=== PATIENT | male | born 1965 | race American Indian/Alaskan Native ===

== ENCOUNTER 2019-02-26 07:51 | Emergency (ER) | payer OTHER ==
[2019-02-26] MEDS ORDERED: HYDROcodone/ACETAMINOPHEN 5-325 MG TAB PO ONE (09:14)
[2019-02-26 09:46] LABS: Hematocrit 31.5 % (35.5-45.6); Hemoglobin 10.1 gm/dl (11.8-15.2); Mean Corpuscular HGB Conc 32 % (32-34); Mean Corpuscular Volume 77 fl (84-94); Platelet Count 223 K/mm3 (140-440); Red Cell Distribution Width 14.8 % (13.2-15.2)
[2019-02-26 10:06] LABS: Alanine Aminotransferase 12 units/L (7-56); Albumin 4.8 g/dL (3.9-5); BUN/Creatinine Ratio 9; Blood Urea Nitrogen 8 mg/dL (9-20); Calcium 9.5 mg/dL (8.4-10.2); Hemolysis Index 9
--- NOTE | 2019-02-26 10:18 | Emergency Department Report ---
ED Extremity Problem HPI - General Chief complaint: Extremity Injury, Lower Stated complaint: ANKLE SWOLLEN Time Seen by Provider: 02/26/19 08:56 Source: patient Mode of arrival: Ambulatory Limitations: No Limitations - History of Present Illness Initial comments: Patient is a 53-year-old male who presents emergency room with complaints of left ankle and left heel pain that began 3 days ago. Patient states that he has associated swelling in the left ankle and foot. He states that it has become uncomfortable to bear weight and he feels discomfort when he first steps down. He denies any fall or injury. He denies any numbness, weakness. He states that he is on his feet a lot while at work. He denies any recent travel, recent surgery, recent immobilization. Past medical history of hypertension and GERD. Patient is on amlodipine for his hypertension. Severity scale (0 -10): 10 - Related Data Previous Rx's Medication Instructions Recorded Last Taken Type Ciprofloxacin HCl [Ciprofloxacin 500 mg PO Q12HR #14 tab 02/22/15 Unknown Rx TAB] Albuterol Sulfate [Ventolin HFA] 2 puff IH Q4H PRN #1 hfa.aer.ad 07/24/15 Unknown Rx Azithromycin [Zithromax] 250 mg PO DAILY #01 pkg 07/24/15 Unknown Rx Fluticasone [Flonase] 2 spray NS QDAY #1 bottle 07/24/15 Unknown Rx Losartan [Cozaar] 12.5 mg PO QDAY #60 tablet 07/24/15 Unknown Rx Prednisone [predniSONE 10 mg 10 mg PO .TAPER #1 tab.ds.pk 07/24/15 Unknown Rx (6-Day Pack, 21 Tabs)] Promethazine /Codeine 5 ml PO Q6H PRN #150 ml 07/24/15 Unknown Rx [Phenergan/Codeine 6.25-10 mg/5 ml] Naproxen [Naprosyn TAB] 500 mg PO BID PRN #20 tablet 02/26/19 Unknown Rx Allergies Allergy/AdvReac Type Severity Reaction Status Date / Time No Known Allergies Allergy Verified 07/24/15 05:07 ED Review of Systems ROS: Stated complaint: ANKLE SWOLLEN Other details as noted in HPI Comment: All other systems reviewed and negative ED Past Medical Hx - Past Medical History Previous Medical History?: Yes Hx Hypertension: Yes Additional medical history: anemia - Surgical History Past Surgical History?: Yes Additional Surgical History: "hernia repair" "thumb" - Social History Smoking Status: Current Every Day Smoker Substance Use Type: None - Medications Home Medications: Home Medications Medication Instructions Recorded Confirmed Last Taken Type Ciprofloxacin HCl [Ciprofloxacin 500 mg PO Q12HR #14 tab 02/22/15 Unknown Rx TAB] Albuterol Sulfate [Ventolin HFA] 2 puff IH Q4H PRN #1 hfa.aer.ad 07/24/15 Unknown Rx Azithromycin [Zithromax] 250 mg PO DAILY #01 pkg 07/24/15 Unknown Rx Fluticasone [Flonase] 2 spray NS QDAY #1 bottle 07/24/15 Unknown Rx Losartan [Cozaar] 12.5 mg PO QDAY #60 tablet 07/24/15 Unknown Rx Prednisone [predniSONE 10 mg 10 mg PO .TAPER #1 tab.ds.pk 07/24/15 Unknown Rx (6-Day Pack, 21 Tabs)] Promethazine /Codeine 5 ml PO Q6H PRN #150 ml 07/24/15 Unknown Rx [Phenergan/Codeine 6.25-10 mg/5 ml] Naproxen [Naprosyn TAB] 500 mg PO BID PRN #20 tablet 02/26/19 Unknown Rx ED Physical Exam - General Limitations: No Limitations General appearance: alert, in no apparent distress - Head Head exam: Present: atraumatic, normocephalic - Eye Eye exam: Present: normal appearance - ENT ENT exam: Present: mucous membranes moist - Extremities Exam Extremities exam: Present: other (TTP to the left anterior ankle, left medial ankle, and left heel, edema present to the left ankle and left proximal foot, FROM of the left ankle, left foot and left toes, no erythema, no increased warmth, neurovascularly intact, no deformity, no TTP of the left calf, no edema superior to the left ankle) - Neurological Exam Neurological exam: Present: alert, oriented X3 - Psychiatric Psychiatric exam: Present: normal affect, normal mood - Skin Skin exam: Present: warm, dry, intact ED Course Vital Signs 02/26/19 02/26/19 08:02 12:02 Temperature 98.4 F 98.4 F Pulse Rate 66 68 Respiratory 18 15 Rate Blood Pressure 128/83 Blood Pressure 125/83 [Left] O2 Sat by Pulse 96 97 Oximetry ED Medical Decision Making - Lab Data Result diagrams: 02/26/19 09:28 02/26/19 09:28 Lab Results 02/26/19 02/26/19 Range/Units 09:28 09:28 WBC 3.6 L (4.5-11.0) K/mm3 RBC 4.10 (3.65-5.03) M/mm3 Hgb 10.1 L (11.8-15.2) gm/dl Hct 31.5 L (35.5-45.6) % MCV 77 L (84-94) fl MCH 25 L (28-32) pg MCHC 32 (32-34) % RDW 14.8 (13.2-15.2) % Plt Count 223 (140-440) K/mm3 Lymph % (Auto) Manager Mac Seg Neutrophils % Manager Mac Sodium 140 (137-145) mmol/L Potassium 3.8 (3.6-5.0) mmol/L Chloride 103.9 (98-107) mmol/L Carbon Dioxide 25 (22-30) mmol/L Anion Gap 15 mmol/L BUN 8 L (9-20) mg/dL Creatinine 0.9 (0.8-1.5) mg/dL Estimated GFR > 60 ml/min BUN/Creatinine Ratio 9 % Glucose 97 (75-100) mg/dL Calcium 9.5 (8.4-10.2) mg/dL Total Bilirubin 0.30 (0.1-1.2) mg/dL AST 30 (5-40) units/L ALT 12 (7-56) units/L Alkaline Phosphatase 53 (35-129) units/L Total Protein 7.6 (6.3-8.2) g/dL Albumin 4.8 (3.9-5) g/dL Albumin/Globulin Ratio 1.7 % - Radiology Data Radiology results: report reviewed LEFT FOOT, 3 VIEWS INDICATION: left foot pain. COMPARISON: None. IMPRESSION: No acute osseous or soft tissue abnormality. Mild osteoarthritic joint space narrowing is noted at the first metatarsophalangeal joint. No bone lesion or erosive joint pathology. Signer Name: Olegario Matta Jr, MD Signed: 02/26/2019 10:37 AM Workstation Name: [id number] Transcribed By: TTR Dictated By: OLEGARIO MATTA JR, MD Electronically Authenticated By: OLEGARIO MATTA JR, MD Signed Date/Time: 02/26/19 1037 LEFT ANKLE 3 VIEWS INDICATION: left ankle pain. COMPARISON: None available. 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 There is an old well- corticated avulsion fracture along the lateral process of the talus. Mild di ffuse soft tissue sw elling is present likely secondary to sprain. There is no acute fracture. Signer Name: Rafiq Foote MD Signed: 02/26/2019 10:33 AM Workstation Name: [id number] Transcribed By: TL Dictated By: Rafiq Foote MD Electronically Authenticated By: Rafiq Foote MD Signed Date/Time: 02/26/19 1033 - Medical Decision Making Patient is a 53-year-old male who presents emergency room with complaints of left ankle and left heel pain that began 3 days ago. Patient states that he has associated swelling in the left ankle and foot. He states that it has become uncomfortable to bear weight and he feels discomfort when he first steps down. He denies any fall or injury. He denies any numbness, weakness. He states that he is on his feet a lot while at work. He denies any recent travel, recent surgery, recent immobilization. Past medical history of hypertension and GERD. Patient is on amlodipine for his hypertension. vitals are normal. labs with very mild anemia otherwise normal, normal kidney function, normal liver function. on exam: TTP to the left anterior ankle, left medial ankle, and left heel, edema present to the left ankle and left proximal foot, FROM of the left ankle, left foot and left toes, no erythema, no increased warmth, neurovascularly intact, no deformity, no TTP of the left calf, no edema superior to the left ankle. XR left foot: No acute osseous or soft tissue abnormality. Mild osteoarthritic joint space narrowing is noted at the first metatarsophalangeal joint. No bone lesion or erosive joint pathology. 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 There is an old well- corticated avulsion fracture along the lateral process of the talus. Mild diffuse soft tissue swelling is present likely secondary to sprain. There is no acute fracture. Discussed radiology results with patient. Patient placed in ankle stirrup splint and given crutches. Patient's discomfort treated while in the emergency department and improved. pt did not drive to the emergency department. Patient given prescription for naproxen and discussed RICE therapy with patient. advised pt to please take medication as prescribed as needed. May ice the leg for 15 minutes at a time, rest, elevate the leg. Follow-up with an orthopedic doctor in the next 2-3 days. Follow-up with a primary care doctor in the next 2-3 days. return to the emergency room for any new or worsening symptoms. - Differential Diagnosis strain, sprain, fx, dislocation, arthritis, tendon/ligament injury Critical care attestation.: If time is entered above; I have spent that time in minutes in the direct care of this critically ill patient, excluding procedure time. ED Disposition Clinical Impression: Left foot pain, Arthritis Left ankle pain Qualifiers: Chronicity: acute Qualified Code(s): M25.572 - Pain in left ankle and joints of left foot Anemia Qualifiers: Anemia type: unspecified type Qualified Code(s): D64.9 - Anemia, unspecified Disposition: DC- TO HOME OR SELFCARE Is pt being admited?: No Does the pt Need Aspirin: No Condition: Stable Instructions: Ankle Sprain (ED), Crutch Instructions (ED), Ankle Stirrup Splint (ED), Anemia (ED), RICE Therapy (ED) Additional Instructions: Please take medication as prescribed as needed. May ice the leg for 15 minutes at a time, rest, elevate the leg. Follow-up with an orthopedic doctor in the next 2-3 days. Follow-up with a primary care doctor in the next 2-3 days. return to the emergency room for any new or worsening symptoms. Prescriptions: Naproxen [Naprosyn TAB] 500 mg PO BID PRN #20 tablet PRN Reason: pain Referrals: ELIANA CORDOBA MD [Primary Care Provider] - 2-3 Days MARIO AGUILAR MD [Staff Physician] - 2-3 Days Forms: Work/School Release Form(ED) Time of Disposition: 10:52 Print Language: SWEDISH
--- NOTE | 2019-02-26 10:37 | XRay Report ---
LEFT ANKLE 3 VIEWS INDICATION: left ankle pain. COMPARISON: None available. 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 There is an old well-corticated avulsion fracture along the lateral process of the talus. Mild diffuse soft tissue swelling is presen t likely secondary to sprain. There is no acute fracture. Signer Name: Rafiq Foote MD Signed: 02/26/2019 10:33 AM Workstation Name: [id number]
--- NOTE | 2019-02-26 10:41 | XRay Report ---
LEFT FOOT, 3 VIEWS INDICATION: left foot pain. COMPARISON: None. IMPRESSION: No acute osseous or soft tissue abnormality. Mild osteoarthritic joint space narrowin g is noted at the first metatarsophalangeal joint. No bone lesion or erosive joint pathology. Signer Name: Olegario Matta Jr, MD Signed: 02/26/2019 10:37 AM Workstation Name: [id number]
[2019-02-26 11:13] LABS: Basophils % (Manual) 0 % (0.0-1.8); Total Cells Counted 100
[2019-02-26 11:14] LABS: Anisocytosis 1+; Hypochromasia 1+; Ovalocytes Few; Platelet Estimate Consistent w Auto; Target Cells Few
[2019-02-26 12:05] VITALS: BP 125/83
== END 2019-02-26 12:02 | disposition home or self-care (01) ==
LOC: ED 07:51
DX: M19.072 Primary osteoarthritis, left ankle and foot (principal); D64.9 Anemia, unspecified; I10 Essential (primary) hypertension; F17.200 Nicotine dependence, unspecified, uncomplicated; Z79.899 Other long term (current) drug therapy
CPT/HCPCS: 36415; 80053; 85007; 85025

== ENCOUNTER 2020-08-02 15:15 | Emergency (ER) | payer OTHER ==
[2020-08-02 15:31] VITALS: BP 137/77
--- NOTE | 2020-08-02 15:33 | Emergency Department Report ---
Stated Complaint: FEVER Time Seen by Provider: 08/02/20 15:30 - HPI History of Present Illness: There is a pleasant 54-year-old male who presents the emergency department chief complaint of generalized body aches, malaise, congestion and subjective fever after receiving his [employer] COVID-19 vaccine yesterday. He reports approximately 4 hours after receiving the vaccine he started to have the symptoms. He denies any chest pain, shortness of breath, nausea, vomiting, diarrhea, chills, headache, blurry vision, weakness or any other associated symptoms. - ROS Review of Systems: See HPI - Exam Physical Exam: GENERAL APPEARANCE: Well-developed, well-nourished, no acute distress HEENT: Normocephalic and atraumatic. No scleral icterus. Pupils are equal, round, and reactive to light and accommodation. No conjunctival injection is noted. Oropharynx is clear. Mouth revealed good dentition, no lesions. Tympanic membranes are clear. NECK: Supple. Trachea is midline. No evidence of thyroid enlargement. No lymphadenopathy or tenderness. CHEST: Symmetric. Nontender to palpation. LUNGS: Breath sounds are equal and clear bilaterally. No wheezes, rhonchi, or rales. HEART: Regular rate and rhythm with normal S1 and S2. No murmurs, gallops, or rubs. BREASTS: Symmetrical. No skin or nipple retractions. No nipple discharges or masses. ABDOMEN: Soft, flat, and benign. No mass, tenderness, guarding, or rebound. No organomegaly or hernia. Bowel sounds are present. No CVA tenderness or flank mass. GENITOURINARY: Deferred RECTAL: Deferred EXTREMITIES: No cyanosis, clubbing, or edema. No lower extreme edema, negative Homans sign bilaterally NEUROLOGIC: No focal sensory or motor deficits are noted. Gait is normal. Cranial nerves II through XII are intact. Deep tendon reflexes are intact. PSYCHIATRIC: The patient is awake, alert, and oriented x3. Recent and remote memory is intact. Appropriate mood and affect. SKIN: Warm, dry, and well perfused. Good turgor. No lesions, nodules or rashes are noted. No onychomycosis. LYMPHATICS: No cervical, axillary, or groin adenopathy is noted. MSE screening note: Focused history and physical exam performed. Due to findings the following was ordered: Patient is nontoxic in no acute distress. Vital signs are stable. Is afebrile. Exam was unremarkable. I did offer to do lab work and x-ray however I think the symptoms are likely secondary to the COVID-19 vaccine and the patient politely declined work-up at this time and preferred to follow-up with his primary care doctor and do supportive treatment. I think this is reasonable. Patient understood he could return to the ER immediately if he develops any change or worsening symptoms. All his questions were answered. ED Disposition for MSE Clinical Impression: Adverse reaction to vaccine Qualifiers: Encounter type: initial encounter Qualified Code(s): T50.Z95A - Adverse effect of other vaccines and biological substances, initial encounter Disposition: MED SCREENING EXAM-LEFT Is pt being admited?: No Condition: Stable Referrals: [facility] [Provider Group] - 3-5 Days TJ ABDALLA MD [Staff Physician] - 3-5 Days Forms: Work/School Release Form(ED) Time of Disposition: 15:33
== END 2020-08-02 15:31 | disposition left against medical advice (07) ==
LOC: ED 15:15
DX: R50.9 Fever, unspecified (principal); Z53.21 Procedure and treatment not carried out due to patient leaving prior to being seen by health care provider

== ENCOUNTER 2020-09-14 12:46 | Emergency (ER) | payer OTHER ==
[2020-09-14] MEDS ORDERED: ASPIRIN 325 MG TAB PO ONE (13:00)
--- NOTE | 2020-09-14 13:01 | Event Note ---
ED Screening Note Date of service: 09/14/20 Time: 13:00 ED Screening Note: 55-year-old male presents with mid to left-sided chest pain that began yesterday. Also complaining of a headache. This initial assessment/diagnostic orders/clinical plan/treatment(s) is/are subject to change based on patients health status, clinical progression and re- assessment by fellow clinical providers in the ED. Further treatment and workup at subsequent clinical providers discretion. Patient/guardian urged not to elope from the ED as their condition may be serious if not clinically assessed and managed. Initial orders include: Labs, EKG, chest x-ray, Main side eval
--- NOTE | 2020-09-14 13:32 | Emergency Department Report ---
HPI - General Chief Complaint: Chest Pain Time Seen by Provider: 09/14/20 13:19 - HPI HPI: Room 19 The patient is a 55-year-old male present with chief complaint of "cough. The patient states 2 days ago his symptoms began with mild rhinorrhea. The patient states he then developed a cough productive of yellow sputum. Patient complains of chest soreness from his coughing and states he worsens during his cough. Patient also complains of a headache. Patient denies history of fever. Patient denies history of nausea/vomiting. Patient did receive the [employer]ie Covid vaccination 08/01/2020 ED Past Medical Hx - Past Medical History Hx Hypertension: Yes Additional medical history: anemia - Surgical History Additional Surgical History: "hernia repair" "thumb". tumor and pituitary removed - Family History Family history: no significant - Social History Smoking Status: Never Smoker Substance Use Type: None (Denies illicit drug use) - Medications Home Medications: Home Medications Medication Instructions Recorded Confirmed Last Taken Type Ciprofloxacin HCl [Ciprofloxacin 500 mg PO Q12HR #14 tab 02/22/15 Unknown Rx TAB] Albuterol Sulfate [Ventolin HFA] 2 puff IH Q4H PRN #1 hfa.aer.ad 07/24/15 Unknown Rx Azithromycin [Zithromax] 250 mg PO DAILY #01 pkg 07/24/15 Unknown Rx Fluticasone [Flonase] 2 spray NS QDAY #1 bottle 07/24/15 Unknown Rx Losartan [Cozaar] 12.5 mg PO QDAY #60 tablet 07/24/15 Unknown Rx Prednisone [predniSONE 10 mg 10 mg PO .TAPER #1 tab.ds.pk 07/24/15 Unknown Rx (6-Day Pack, 21 Tabs)] Promethazine /Codeine 5 ml PO Q6H PRN #150 ml 07/24/15 Unknown Rx [Phenergan/Codeine 6.25-10 mg/5 ml] Naproxen [Naprosyn TAB] 500 mg PO BID PRN #20 tablet 02/26/19 Unknown Rx Albuterol Mdi (or & Nicu Only) 2 puff IH QID PRN #8.5 gram 09/14/20 Unknown Rx [ProAir HFA Inhaler] Benzonatate [Tessalon Perles] 100 mg PO Q8HR #30 capsule 09/14/20 Unknown Rx HYDROcodone/APAP 5-325 [[place] 1 - 2 each PO Q6HR PRN #10 tablet 09/14/20 Unknown Rx 5/325] Ibuprofen [Motrin 800 MG tab] 800 mg PO Q8HR PRN #20 tablet 09/14/20 Unknown Rx levoFLOXacin [Levaquin TAB] 500 mg PO QDAY #7 tablet 09/14/20 Unknown Rx ED Review of Systems ROS: Stated complaint: HEAD PAIN Other details as noted in HPI Constitutional: denies: fever Eyes: denies: eye pain ENT: other (Rhinorrhea) Respiratory: cough Cardiovascular: as per HPI Endocrine: no symptoms reported Gastrointestinal: denies: nausea, vomiting Genitourinary: denies: dysuria Musculoskeletal: myalgia Neurological: headache Physical Exam - Physical Exam Vital Signs: Vital Signs 09/14/20 12:55 Temperature 98.9 F Pulse Rate 79 Respiratory 20 Rate Blood Pressure 121/83 O2 Sat by Pulse 98 Oximetry Physical Exam: GENERAL: The patient is well-developed well-nourished male lying on stretcher not appearing to be in acute distress. [] HEENT: Normocephalic. Atraumatic. Extraocular motions are intact. Patient has moist mucous membranes. NECK: Supple. No meningitic signs are noted. Trachea midline CHEST/LUNGS: Clear to auscultation. There is no respiratory distress noted. Occasional cough noted HEART/CARDIOVASCULAR: Regular. There is no tachycardia. There is no gallop rub or murmur. ABDOMEN: Abdomen is soft, nontender. Patient has normal bowel sounds. There is no abdominal distention. SKIN: There is no rash. There is no edema. There is no diaphoresis. NEURO: The patient is awake, alert, and oriented. The patient is cooperative. The patient has no focal neurologic deficits. The patient has normal speech MUSCULOSKELETAL:There is no evidence of acute injury. ED Course Vital Signs 09/14/20 12:55 Temperature 98.9 F Pulse Rate 79 Respiratory 20 Rate Blood Pressure 121/83 O2 Sat by Pulse 98 Oximetry ED Medical Decision Making - Lab Data Result diagrams: 09/14/20 13:38 09/14/20 13:38 Laboratory Tests 09/14/20 09/14/20 09/14/20 13:38 13:38 Unknown WBC 4.5 RBC 3.64 L Hgb 9.2 L Hct 27.6 L MCV 76 L MCH 25 L MCHC 34 RDW 15.1 Plt Count 205 Lymph % (Auto) 41.6 H [place] % (Auto) 3.5 Eos % (Auto) 6.5 H Baso % (Auto) Electric Motor Repairer Lymph # (Auto) 1.9 [place] # (Auto) 0.2 Eos # (Auto) 0.3 Baso # (Auto) 0.1 Seg Neutrophils % 46.5 Seg Neutrophils # 2.1 Sodium 141 Potassium 3.4 L Chloride 102.6 Carbon Dioxide 25 Anion Gap 17 BUN 15 Creatinine 1.0 Estimated GFR > 60 BUN/Creatinine Ratio 15 Glucose 87 Calcium 7.9 L Total Bilirubin 0.40 AST 29 ALT 9 Alkaline Phosphatase 34 L Troponin T < 0.010 Total Protein 7.3 Albumin 4.3 Albumin/Globulin Ratio 1.4 Influenza A (Rapid) Negative Influenza B (Rapid) Negative - EKG Data -: EKG Interpreted by Me EKG shows normal: sinus rhythm Rate: normal - EKG Data When compared to previous EKG there are: previous EKG unavailable Interpretation: other (No ischemic changes seen) - Radiology Data Radiology results: report reviewed (Chest x-ray), image reviewed (Chest x-ray) interpreted by me: Chest x-ray-no focal infiltrates, no pneumothorax. No foreign body seen [facility] [address] [place] [address] XRay Report Signed Patient: MARY SHORE JR MR#: [id number] : 1965 Acct:[id number] Age/Sex: 55 / M ADM Date: 09/14/20 Loc: ED Attending Dr: Ordering Physician: FAISAL RENAE Date of Service: 09/14/20 Procedure(s): XR chest routine 2V Accession Number(s): [id number] cc: FAISAL RENAE Fluoro Time In Minutes: CHEST 2 VIEWS INDICATION: cp. COMPARISON: 07/24/2015 FINDINGS: SUPPORT DEVICES: None. HEART: Within normal limits. LUNGS/PLEURA: No acute air space or interstitial disease. No pneumothorax. ADDITIONAL FINDINGS: None. IMPRESSION: 1. No acute findings. Signer Name: Nick Gomes MD Signed: 09/14/2020 1:25 PM Workstation Name: [id number] Transcribed By: MAXIMILIANO Dictated By: Nick Gomes MD Lesia ctronically Authenticated By: Nick Gomes MD Signed Date/Time: 09/14/20 132 DD/ 22 TD/TT: Print Cancel - Differential Diagnosis Pneumonia, bronchitis, URI, ACS, costochondritis Critical care attestation.: If time is entered above; I have spent that time in minutes in the direct care of this critically ill patient, excluding procedure time. ED Disposition Clinical Impression: Acute bronchitis Disposition: DC-01 TO HOME OR SELFCARE Is pt being admited?: No Does the pt Need Aspirin: No Condition: Stable Instructions: Acute Bronchitis (ED), Acute Bronchitis, Adult, [id number] Additional Instructions: Return to the emergency department should you develop worsening symptoms, inability to tolerate food or liquids, high fever or any other concerns Prescriptions: levoFLOXacin [Levaquin TAB] 500 mg PO QDAY #7 tablet Ibuprofen [Motrin 800 MG tab] 800 mg PO Q8HR PRN #20 tablet PRN Reason: Pain, Moderate (4-6) HYDROcodone/APAP 5-325 [[place] 5/325] 1 - 2 each PO Q6HR PRN #10 tablet PRN Reason: Pain Albuterol Mdi (or & Nicu Only) [ProAir HFA Inhaler] 2 puff IH QID PRN #8.5 gram PRN Reason: Shortness Of Breath Benzonatate [Tessalon Perles] 100 mg PO Q8HR #30 capsule Referrals: PRIMARY CAREMD [Referring] - 3-5 Days [facility] [Provider Group] - 3-5 Days Time of Disposition: 15:15
[2020-09-14 14:48] LABS: Basophils # (Auto) 0.1 K/mm3 (0.0-0.1); Eosinophils # (Auto) 0.3 K/mm3 (0.0-0.4); Eosinophils % (Auto) 6.5 % (0.0-4.3); Hematocrit 27.6 % (35.5-45.6); Hemoglobin 9.2 gm/dl (11.8-15.2); Lymphocytes # (Auto) 1.9 K/mm3 (1.2-5.4); Lymphocytes % (Auto) 41.6 % (13.4-35.0); Mean Corpuscular HGB Conc 34 % (32-34); Mean Corpuscular Volume 76 fl (84-94); Monocytes # (Auto) 0.2 K/mm3 (0.0-0.8); Monocytes % (Auto) 3.5 % (0.0-7.3); Platelet Count 205 K/mm3 (140-440); Red Blood Count 3.64 M/mm3 (3.65-5.03); Red Cell Distribution Width 15.1 % (13.2-15.2)
[2020-09-14 14:54] LABS: Alanine Aminotransferase 9 units/L (7-56); Albumin 4.3 g/dL (3.9-5); BUN/Creatinine Ratio 15; Blood Urea Nitrogen 15 mg/dL (9-20); Calcium 7.9 mg/dL (8.4-10.2); Hemolysis Index 0
[2020-09-14] MEDS ORDERED: levoFLOXacin 500 MG TAB PO ONE (15:13)
[2020-09-14 15:20] VITALS: BP 112/82
--- NOTE | 2020-09-15 10:40 | Electrocardiograph Report ---
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
== END 2020-09-14 15:29 | disposition home or self-care (01) ==
LOC: ED 12:46
DX: J20.9 Acute bronchitis, unspecified (principal); I10 Essential (primary) hypertension; Z86.2 Personal history of diseases of the blood and blood-forming organs and certain disorders involving the immune mechanism; Z88.0 Allergy status to penicillin; Z91.018 Allergy to other foods; Z79.899 Other long term (current) drug therapy
CPT/HCPCS: 36415; 71046; 80053; 84484; 85025; 87040; 87400; 93005; 99284

== ENCOUNTER 2020-10-24 06:48 | Emergency (ER) | payer OTHER ==
[2020-10-24 07:06] VITALS: BP 136/93
--- NOTE | 2020-10-24 07:35 | Emergency Department Report ---
ED Eye Problem HPI - General Chief complaint: Eye Problems Stated complaint: BOTH EYES ARE SWOLLEN Source: patient Mode of arrival: Ambulatory Limitations: No Limitations - History of Present Illness Initial comments: 55-year-old -Thai male presents to the emergency room for a 3 to 4- day history of swelling to his right lower lid with mild drainage and itching. Patient denies any trauma to his eye. States that he has pain when he blinks from his lower eyelid. He wakes up with crusty eyelashes. MD chief complaint: other (Bump on lower right eyelid) Onset/Timin -: days(s) Location: right eye If Injury: none Eye Symptoms: pain (Lower rim of eye), itching, discharge Severity scale (0 -10): 5 Consistency: constant Associated Symptoms: none Treatments Prior to Arrival: none - Related Data Patient Tetanus UTD: Yes Previous Rx's Medication Instructions Recorded Last Taken Type Ciprofloxacin HCl [Ciprofloxacin 500 mg PO Q12HR #14 tab 02/22/15 Unknown Rx TAB] Albuterol Sulfate [Ventolin HFA] 2 puff IH Q4H PRN #1 hfa.aer.ad 07/24/15 Unknown Rx Azithromycin [Zithromax] 250 mg PO DAILY #01 pkg 07/24/15 Unknown Rx Fluticasone [Flonase] 2 spray NS QDAY #1 bottle 07/24/15 Unknown Rx Losartan [Cozaar] 12.5 mg PO QDAY #60 tablet 07/24/15 Unknown Rx Prednisone [predniSONE 10 mg 10 mg PO .TAPER #1 tab.ds.pk 07/24/15 Unknown Rx (6-Day Pack, 21 Tabs)] Promethazine /Codeine 5 ml PO Q6H PRN #150 ml 07/24/15 Unknown Rx [Phenergan/Codeine 6.25-10 mg/5 ml] Naproxen [Naprosyn TAB] 500 mg PO BID PRN #20 tablet 02/26/19 Unknown Rx Albuterol Mdi (or & Nicu Only) 2 puff IH QID PRN #8.5 gram 09/14/20 Unknown Rx [ProAir HFA Inhaler] Benzonatate [Tessalon Perles] 100 mg PO Q8HR #30 capsule 09/14/20 Unknown Rx HYDROcodone/APAP 5-325 [[place] 1 - 2 each PO Q6HR PRN #10 tablet 09/14/20 Unknown Rx 5/325] Ibuprofen [Motrin 800 MG tab] 800 mg PO Q8HR PRN #20 tablet 09/14/20 Unknown Rx levoFLOXacin [Levaquin TAB] 500 mg PO QDAY #7 tablet 09/14/20 Unknown Rx Erythromycin [Erythromycin Ophth 1 strip OD QID 10 Days #1 tube 10/24/20 Unknown Rx Oint] Allergies Allergy/AdvReac Type Severity Reaction Status Date / Time kiwi Allergy Hives Verified 09/14/20 12:52 morphine Allergy Swelling Verified 10/24/20 06:49 Penicillins Allergy Hives Verified 09/14/20 12:52 ED Review of Systems ROS: Stated complaint: BOTH EYES ARE SWOLLEN Other details as noted in HPI Comment: All other systems reviewed and negative ED Past Medical Hx - Past Medical History Hx Hypertension: Yes Additional medical history: anemia - Surgical History Additional Surgical History: "hernia repair" "thumb". tumor and pituitary removed - Social History Smoking Status: Never Smoker Substance Use Type: None - Medications Home Medications: Home Medications Medication Instructions Recorded Confirmed Last Taken Type Ciprofloxacin HCl [Ciprofloxacin 500 mg PO Q12HR #14 tab 02/22/15 Unknown Rx TAB] Albuterol Sulfate [Ventolin HFA] 2 puff IH Q4H PRN #1 hfa.aer.ad 07/24/15 Unknown Rx Azithromycin [Zithromax] 250 mg PO DAILY #01 pkg 07/24/15 Unknown Rx Fluticasone [Flonase] 2 spray NS QDAY #1 bottle 07/24/15 Unknown Rx Losartan [Cozaar] 12.5 mg PO QDAY #60 tablet 07/24/15 Unknown Rx Prednisone [predniSONE 10 mg 10 mg PO .TAPER #1 tab.ds.pk 07/24/15 Unknown Rx (6-Day Pack, 21 Tabs)] Promethazine /Codeine 5 ml PO Q6H PRN #150 ml 07/24/15 Unknown Rx [Phenergan/Codeine 6.25-10 mg/5 ml] Naproxen [Naprosyn TAB] 500 mg PO BID PRN #20 tablet 02/26/19 Unknown Rx Albuterol Mdi (or & Nicu Only) 2 puff IH QID PRN #8.5 gram 09/14/20 Unknown Rx [ProAir HFA Inhaler] Benzonatate [Tessalon Perles] 100 mg PO Q8HR #30 capsule 09/14/20 Unknown Rx HYDROcodone/APAP 5-325 [[place] 1 - 2 each PO Q6HR PRN #10 tablet 09/14/20 Unknown Rx 5/325] Ibuprofen [Motrin 800 MG tab] 800 mg PO Q8HR PRN #20 tablet 09/14/20 Unknown Rx levoFLOXacin [Levaquin TAB] 500 mg PO QDAY #7 tablet 09/14/20 Unknown Rx Erythromycin [Erythromycin Ophth 1 strip OD QID 10 Days #1 tube 10/24/20 Unknown Rx Oint] ED Physical Exam - General Limitations: No Limitations General appearance: alert, in no apparent distress - Head Head exam: Present: atraumatic, normocephalic - Expanded Eye Exam Expanded Eyelids: Stye: Right, Erythema: Right, Swelling: Right Pupils: Regular, Round: Bilateral Sclera/Conjunctival: Normal Inspection: Bilateral Anterior chamber: Normal Inspection: Bilateral Posterior chamber: Deferred: Bilateral - ENT ENT exam: Present: normal external ear exam - Neck Neck exam: Present: normal inspection, full ROM - Respiratory Respiratory exam: Absent: accessory muscle use - Cardiovascular Cardiovascular Exam: Present: regular rate - Back Exam Back exam: Present: normal inspection - Neurological Exam Neurological exam: Present: alert, oriented X3, normal gait - Psychiatric Psychiatric exam: Present: normal affect, normal mood - Skin Skin exam: Present: warm, dry, intact, normal color. Absent: rash ED Medical Decision Making - Medical Decision Making 55-year-old -Thai male presents to the emergency room for a 3 to 4- day history of swelling to his right lower lid with mild drainage and itching. Patient denies any trauma to his eye. States that he has pain when he blinks from his lower eyelid. He wakes up with crusty eyelashes. Patient has a stye on right lower lid. Patient is placed on erythromycin ophthalmic ointment 4 times daily x10 days. Discussed washing hands before and after. Discussed warm compresses to the eye and wash with baby shampoo. Patient is to follow-up with his primary care provider Dr. Kait Barber if any further concerns. Critical care attestation.: If time is entered above; I have spent that time in minutes in the direct care of this critically ill patient, excluding procedure time. ED Disposition Clinical Impression: Chalazion of right lower eyelid Disposition: DC-01 TO HOME OR SELFCARE Is pt being admited?: No Does the pt Need Aspirin: No Condition: Stable Instructions: Chalazion Additional Instructions: Continue with warm compress to your right eye. Use baby shampoo to clean your your eye. Wash your hands before and after applying your medication. Follow-up with your primary care provider if you have any further concerns. You can take Tylenol ibuprofen for any pain or discomfort. Prescriptions: Erythromycin [Erythromycin Ophth Oint] 1 strip OD QID 10 Days #1 tube Referrals: KAIT BARBER MD [Referring] - 3-5 Days Forms: Work/School Release Form(ED)
== END 2020-10-24 07:42 | disposition home or self-care (01) ==
LOC: ED 06:48
DX: H00.12 Chalazion right lower eyelid (principal); I10 Essential (primary) hypertension; Z86.2 Personal history of diseases of the blood and blood-forming organs and certain disorders involving the immune mechanism; Z79.899 Other long term (current) drug therapy; Z88.0 Allergy status to penicillin; Z88.5 Allergy status to narcotic agent; Z91.018 Allergy to other foods
CPT/HCPCS: 99281